=== PATIENT | male | born 1975 | race Hispanic/Latino ===

== ENCOUNTER 2016-05-19 19:52 | Emergency (ER) | payer MEDICAID ==
[2016-05-19 20:26] LABS: Basophils % (Auto) 0.7 % (0.0-1.8); Hematocrit 43.6 % (35.5-45.6); Hemoglobin 14.7 gm/dl (11.8-15.2); Mean Corpuscular HGB Conc 34 % (32-34); Mean Corpuscular Hemoglobin 30 pg (28-32); Mean Corpuscular Volume 88 fl (84-94); Platelet Count 210 K/mm3 (140-440); Red Blood Count 4.95 M/mm3 (3.65-5.03); Red Cell Distribution Width 13.5 % (13.2-15.2); White Blood Count 11.8 K/mm3 (4.5-11.0)
--- NOTE | 2016-05-19 21:43 | Emergency Department Report ---
ED Chest Pain HPI - General Chief Complaint: Chest Pain Stated Complaint: CHEST PAIN Time Seen by Provider: 05/19/16 21:03 Source: patient, family, EMS Mode of arrival: Stretcher Limitations: No Limitations - History of Present Illness Initial Comments: 40-year-old male with a past medical history CHF and diabetes presents to the hospital with complaints of chest pain that started 1.5 hours prior to arrival. Patient describes a tightness with a sharp component with radiation to left shoulder and down to his elbow. Positive associated shortness of breath and diaphoresis. Pain was 10/10 on onset. No improvement with NTG 3 prior to arrival. Upon EMS arrival patient was found to be in SVT rate 184. Patient received 6 and 12 of adenosine with conversion to sinus rhythm and improvement in symptoms. 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 Patient reports that he just had an outpatient echo on March 15 and he had a cardiac cath in 2013 and denies any stent placement Severity scale (0 -10): 1 - Related Data Allergies Allergy/AdvReac Type Severity Reaction Status Date / Time bumetanide [From Bumex] Allergy Unknown Verified 05/19/16 20:07 NOELLE score - Noelle Score Age > 65: (0) No Aspirin use within the Past 7 Days: (1) Yes 3 or more CAD Risk Factors: (0) No 2 or more Angina events in past 24 hrs: (0) No Known CAD with more than 50% Stenosis: (0) No Elevated Cardiac Markers: (0) No ST Deviation Greater than 0.5mm: (0) No NOELLE Score: 1 ED Review of Systems ROS: Stated complaint: CHEST PAIN Other details as noted in HPI Comment: All other systems reviewed and negative Other: Constitutional: No fevers chills Eyes: No eye pain visual changes ENT: No ear pain or throat pain Neck: Denies pain Respiratory: Denies cough wheezing Cardiovascular: As per HPI GI: Denies abdominal pain, nausea, vomiting, diarrhea : Denies dysuria, urinary frequency, or urgency Musculoskeletal: Denies back pain, joint swelling Skin: Denies rash, lesions, erythema Neurologic: Denies headache, numbness, weakness Psychiatric: Denies suicidal ideation, hallucinations ED Past Medical Hx - Past Medical History Previous Medical History?: Yes Hx Congestive Heart Failure: Yes Hx Diabetes: Yes - Surgical History Past Surgical History?: No - Social History Smoking Status: Current Every Day Smoker Substance Use Type: Prescribed ED Physical Exam - General Limitations: No Limitations - Other Other exam information: General: No limitations, patient is alert in no acute distress Head exam: Atraumatic, normocephalic Eyes exam: Normal appearance, pupils equal reactive to light, extraocular movements intact ENT: Moist mucous membrane, normal oropharynx Neck exam: Normal inspection, full range of motion, no meningismus nontender Respiratory exam: Clear to auscultation bilateral, no wheezes, rales, crackles Cardiovascular: Regular rhythm Abdomen: Soft, nondistended, and nontender, with normal bowel sounds, no rebound, or guarding Extremity: Full range of motion normal inspection no deformity, no calf tenderness or edema Back: Normal Inspection, full range of motion, no tenderness Neurologic: Alert, oriented x3, cranial nerves intact, no motor or sensory deficit Psychiatric: normal affect, normal mood Skin: Warm, dry, intact ED Course Vital Signs 05/19/16 05/19/16 05/19/16 19:57 20:07 20:11 Temperature 98.1 F Pulse Rate 114 H 112 H Respiratory 20 20 Rate Blood Pressure 122/83 Blood Pressure 122/83 [Left] O2 Sat by Pulse 96 96 Oximetry 05/19/16 22:16 Temperature Pulse Rate 108 H Respiratory 18 Rate Blood Pressure Blood Pressure 111/64 [Left] O2 Sat by Pulse 94 Oximetry - Reevaluation(s) Reevaluation #1: 05/19/16 22:26 Patient remained stable in the ED with mild tachycardia sinus rhythm - Consultations Consultation #1: 05/19/16 22:26 Dr. Young with cardiology. Consultation will evaluate during admission 05/19/16 22:26 ED Medical Decision Making - Lab Data Result diagrams: 05/19/16 Unknown 05/19/16 Unknown Lab Results 05/19/16 05/19/16 05/19/16 Range/Units Unknown Unknown Unknown WBC 11.8 H (4.5-11.0) K/mm3 RBC 4.95 (3.65-5.03) M/mm3 Hgb 14.7 (11.8-15.2) gm/dl Hct 43.6 (35.5-45.6) % MCV 88 (84-94) fl MCH 30 (28-32) pg MCHC 34 (32-34) % RDW 13.5 (13.2-15.2) % Plt Count 210 (140-440) K/mm3 Lymph % (Auto) 20.1 (13.4-35.0) % [place] % (Auto) 8.3 H (0.0-7.3) % Eos % (Auto) 3.0 (0.0-4.3) % Baso % (Auto) 0.7 (0.0-1.8) % Lymph # 2.4 (1.2-5.4) K/mm3 [place] # 1.0 H (0.0-0.8) K/mm3 Eos # 0.4 (0.0-0.4) K/mm3 Baso # 0.1 (0.0-0.1) K/mm3 Seg Neutrophils % 67.9 (40.0-70.0) % Seg Neutrophils # 8.0 H (1.8-7.7) K/mm3 Sodium 137 (137-145) mmol/L Potassium 3.4 L (3.6-5.0) mmol/L Chloride 92.1 L (98-107) mmol/L Carbon Dioxide 27 (22-30) mmol/L Anion Gap 21 mmol/L BUN 11 (9-20) mg/dL Creatinine 0.8 (0.8-1.5) mg/dL Estimated GFR > 60 ml/min BUN/Creatinine Ratio 13.75 % Glucose 187 H (75-100) mg/dL Calcium 9.3 (8.4-10.2) mg/dL Magnesium 1.8 (1.7-2.3) mg/dL Total Creatine Kinase 76 (55-170) units/L CK-MB (CK-2) 3.6 (0.0-4.0) ng/mL CK-MB (CK-2) Rel Index 4.7 H (0-4) Troponin T < 0.010 (0.00-0.029) ng/mL - EKG Data -: EKG Interpreted by Me (sinus tach righward axis, nonspecivic intraventricular block) - EKG Data When compared to previous EKG there are: previous EKG unavailable - Medical Decision Making Patient received potassium in the ED. Given symptoms and cardiac history we'll admit to the hospital for further evaluate. Requested cardiac files from [facility] - Differential Diagnosis SVT, arrhythmia, OK, unstable angina Critical Care Time: No Critical care attestation.: If time is entered above; I have spent that time in minutes in the direct care of this critically ill patient, excluding procedure time. ED Disposition Clinical Impression: SVT (supraventricular tachycardia), Chest pain, HTN (hypertension), Diabetes, Hyponatremia Disposition: OP ADMITTED IP TO THIS HOSP Is pt being admited?: Yes Condition: Stable Time of Disposition: 22:26 (Dr lewis/hosp)
[2016-05-19 21:54] LABS: Anion Gap 21 mmol/L; BUN/Creatinine Ratio 13.75; Blood Urea Nitrogen 11 mg/dL (9-20); Calcium 9.3 mg/dL (8.4-10.2); Carbon Dioxide 27 mmol/L (22-30); Chloride 92.1 mmol/L (98-107); Glucose 187 mg/dL (75-100); Potassium 3.4 mmol/L (3.6-5.0); Sodium 137 mmol/L (137-145)
[2016-05-19 21:56] LABS: Creatine Kinase MB 3.6 ng/mL (0.0-4.0)
[2016-05-19 21:58] LABS: Magnesium 1.8 mg/dL (1.7-2.3)
[2016-05-19 22:17] VITALS: BP 111/64
[2016-05-19] MEDS ORDERED: K-DUR PO ONE (22:17)
[2016-05-20 00:19] LABS: Cholesterol 219 mg/dL (50-199); HDL Cholesterol 30 mg/dL (40-59); LDL Cholesterol,Direct TNR mg/dL (50-130); Triglycerides 468 mg/dL (2-149)
--- NOTE | 2016-05-20 10:05 | XRay Report ---
AP CHEST: HISTORY: Shortness of breath, supraventricular tachycardia AP view of the chest demonstrates a normal mediastinal and cardiac contour with clear lungs and normal bony and soft tissue structures. IMPRESSION: Unremarkable AP chest.
== END 2016-05-19 23:35 | disposition left against medical advice (07) ==
LOC: ED 19:52 → UNDOADMIN 22:27 → 4A 22:27
DX: I47.1 Supraventricular tachycardia (principal); R07.9 Chest pain, unspecified; I10 Essential (primary) hypertension; E11.9 Type 2 diabetes mellitus without complications; E87.1 Hypo-osmolality and hyponatremia; I50.9 Heart failure, unspecified; F17.200 Nicotine dependence, unspecified, uncomplicated; Z88.8 Allergy status to other drugs, medicaments and biological substances
CPT/HCPCS: 36415; 71010; 80048; 80061; 82550; 82553; 83735; 84484; 85025; 93005; 93010